=== PATIENT | female | born 1945 | race Two or more races ===

== ENCOUNTER → 2016-07-27 | Outpatient (CLI) | payer MEDICARE, OTHER ==
[~2016-07-27] MED LIST: ALPR-140 PO; ASP81EC PO; ATO40T PO; ATOR40TA52 PO; CIP500T PO; CLOP75TA28 PO; ESCI20TA51 PO; FENO145T20 PO; FURO20TA PO; GLIP-115 PO; HYDR-4072 PO; LEV25T PO; LOS25T PO; LOSA100T27 PO; MET50T PO; METO-291 PO; PANT40T PO; PIOG30TA37 PO; POTA10TA34 PO; ROPI0.5T18 PO; SACC250C PO; ZOLP5TAB5 PO
[2016-07-27 11:45] LABS: Basophils # (auto) 0 uL; Basophils % (auto) 0.5 % (0.0-2.0); Eosinophils # (auto) 0.1 uL; Eosinophils % (auto) 1.7 % (0.0-7.0); Hematocrit 36.7 % (36.0-46.0); Hemoglobin 12.1 g/dL (12.2-16.2); Lymphocytes # (auto) 2.1 uL; Lymphocytes % (auto) 30.2 % (10.0-50.0); Mean Corpuscular Hemoglobin 29.1 pg (28.0-32.0); Mean Corpuscular Hgb Conc. 32.8 g/dL (32.0-36.0); Mean Corpuscular Volume 88.6 fL (80.0-100.0); Mean Platelet Volume 8.6 fL (7.4-10.4); Monocytes # (auto) 0.5 uL; Monocytes % (auto) 6.6 % (0.0-12.0); Neutrophils # (auto) 4.3 uL; Platelet Count (auto) 248 10^3/uL (140-450); Red Cell Distribution Width 15.1 % (11.6-16.0)
[2016-07-27 12:11] LABS: BUN/Creatinine Ratio 18.8; Calcium 9.4 mg/dL (8.5-10.1); Potassium 3.9 mmol/L (3.5-5.1)
== END | disposition home or self-care (01) ==
LOC: LAB 11:23
PROVIDERS: ATTEND Thoracic Surgery (Cardiothoracic Vascular Surgery)
DX: I25.10 Atherosclerotic heart disease of native coronary artery without angina pectoris (principal)
CPT/HCPCS: 36415; 80048; 85025

== ENCOUNTER 2019-07-29 06:43 | Inpatient (IN) | payer MEDICARE, OTHER ==
[~2019-07-29] VITALS: Ht 149.9 cm; Wt 93.8 kg
[~2019-07-29 06:43] MED LIST changes: -ALPR-140 PO; +ALPR0.5T8 PO; +AMLO10TA13 PO; -ATO40T PO; -ATOR40TA52 PO; -CIP500T PO; -CLOP75TA28 PO; -FENO145T20 PO; -FURO20TA PO; +GABA300C10 PO; -GLIP-115 PO; +GLIP10TA9 PO; +HYDR-392 PO; -HYDR-4072 PO; -LEV25T PO; +LEVO75TA6 PO; -LOS25T PO; -LOSA100T27 PO; -MET50T PO; -METO-291 PO; +METO1TAB9 PO; +NITR0.4S29 SL; -PANT40T PO; -PIOG30TA37 PO; -POTA10TA34 PO; -ROPI0.5T18 PO; -SACC250C PO
[2019-07-29] MEDS ORDERED: IOHEXOL 350 MG/ML 100ML IJ ONE (07:19)
[2019-07-29] MEDS ORDERED: LIDOCAINE 2%HCL (LOCAL ANESTH.) INJ 20ML MDV ONE (07:19)
[2019-07-29] MEDS ORDERED: ANGIOMAX 250 MG VIAL IV ONE (08:05)
[2019-07-29] MEDS ORDERED: fentaNYL CITRATE 100 MCG/2 ML VL ONE ×2 (08:06→09:04)
[2019-07-29] MEDS ORDERED: SODIUM CHL 0.9% 50 ML ONE (08:06)
[2019-07-29] MEDS ORDERED: MIDAZOLAM HCL 1MG/1ML-2 ML VIAL ONE (08:06)
[2019-07-29] MEDS ORDERED: TICAGRELOR 90 MG TAB ONE (08:55)
[2019-07-29] MEDS ORDERED: ASPirin 81 mg TAB ONE (08:55)
[2019-07-29] MEDS ORDERED: NITROGLYCERIN 0.4MG/DOSE SPRAY 4.9GM ONE (08:56)
[2019-07-29] MEDS ORDERED: ALPRAZolam 0.5 MG TAB PO PRN (09:30)
[2019-07-29] MEDS ORDERED: NITROGLYCERIN 0.4 MG SL TAB SL SCH (09:30)
[2019-07-29] MEDS ORDERED: ONDANSETRON HCL 4 MG/2 ML VIAL IV PRN (09:30)
[2019-07-29] MEDS ORDERED: MORPHINE SULF INJ 2 MG/ML SYRINGE 1ML IV PRN (09:30)
[2019-07-29] MEDS ORDERED: NITROGLYCERIN 0.4 MG SL TAB SL PRN (09:30)
[2019-07-29] MEDS ORDERED: PATIENTS OWN MEDICATION (Glipizide 10 MG) PO SCH (10:00)
[2019-07-29] MEDS ORDERED: DEXTROSE (50%) 50ML SYRG IV PRN (10:00)
[2019-07-29] MEDS ORDERED: PATIENTS OWN MEDICATION (Metoprolol Succinate (Metoprolol Succinate Er) 100 MG) PO SCH (10:00)
[2019-07-29] MEDS ORDERED: PATIENTS OWN MEDICATION (Amlodipine Besylate 1 TAB) PO SCH (10:00)
[2019-07-29] MEDS ORDERED: PATIENTS OWN MEDICATION (Escitalopram Oxalate 20 MG) PO SCH (10:00)
[2019-07-29] MEDS ORDERED: ASPirin-EC 81 mg tab PO SCH (10:00)
[2019-07-29] MEDS ORDERED: PATIENTS OWN MEDICATION (Levothyroxine Sodium 1 TAB) PO SCH (10:00)
[2019-07-29 11:00] VITALS: BP 121/59
[2019-07-29] MEDS ORDERED: CLOPIDOGREL 300 MG TAB PO ONE ×2 (11:00→21:00)
[2019-07-29] MEDS: InsuLIN REG 1unit/0.01ml Soln (100units/ml) SC SCH ×3 (11:30→21:32)
[2019-07-29] MEDS: glipiZIDE 5 MG TAB PO SCH (11:33)
[2019-07-29] MEDS: ACCU-CHEK COMFORT CURVE STRIP VI SCH ×3 (11:34→21:32)
[2019-07-29] MEDS: GABAPENTIN 300 MG CAP PO SCH (13:00)
[2019-07-29] MEDS: METOPROLOL SUCCINATE XL 50 MG TAB PO SCH (13:01)
[2019-07-29] MEDS: amLODIPine BESYLATE 5 MG TAB PO SCH (13:01)
[2019-07-29] MEDS ORDERED: HYDROcodone-ACET 7.5/325MG TAB PO PRN (14:00)
[2019-07-29] MEDS ORDERED: ASP81EC PO (15:23)
[2019-07-29] MEDS ORDERED: LISI-646 PO (15:23)
[2019-07-29] MEDS ORDERED: CLOP75TA28 PO (15:23)
[2019-07-29] MEDS ORDERED: METO1TAB9 PO (15:23)
[2019-07-29 16:23] VITALS: BP 127/73
[2019-07-29 22:00] VITALS: BP 126/56
[2019-07-29] MEDS ORDERED: ZOLPIDEM TARTRATE 5 MG TAB PO SCH (22:00)
[2019-07-29] MEDS ORDERED: ATORVASTATIN 20 MG TAB PO SCH (22:00)
[2019-07-30 05:00] VITALS: BP 132/53
[2019-07-30 05:27] LABS: Basophils # (auto) 0.1 10 ^3/uL (0-0.2); Basophils % (auto) 0.5 % (0.0-2.0); Eosinophils # (auto) 0.1 10 ^3/uL (0-0.8); Eosinophils % (auto) 0.7 % (0.0-7.0); Hematocrit 41.2 % (36.0-46.0); Hemoglobin 13.9 g/dL (12.2-16.2); Lymphocytes # (auto) 2.6 10 ^3/uL (0.4-5.4); Lymphocytes % (auto) 24.9 % (10.0-50.0); Mean Corpuscular Hemoglobin 29.5 pg (28.0-32.0); Mean Corpuscular Hgb Conc. 33.6 g/dL (32.0-36.0); Mean Corpuscular Volume 87.7 fL (80.0-100.0); Monocytes % (auto) 9.2 % (0.0-12.0); Neutrophils # (auto) 6.8 10 ^3/uL (1.6-8.6); Neutrophils % (auto) 64.7 % (37.0-80.0); Platelet Count (auto) 195 10^3/uL (140-450); Red Cell Distribution Width 14.2 % (11.8-14.3); White Blood Cell 10.5 10^3/uL (4.4-10.8)
[2019-07-30 05:44] LABS: Calcium 8.6 mg/dL (8.5-10.1); Potassium 3.4 mmol/L (3.5-5.1)
[2019-07-30 05:47] LABS: BUN/Creatinine Ratio 11.6
[2019-07-30 06:03] LABS: Cholesterol 231 mg/dL (< 200)
[2019-07-30 06:06] LABS: HDL Cholesterol 41 mg/dL (40-59); LDL Cholesterol 164 mg/dL (< 100); Triglycerides 145 mg/dL (< 150)
[2019-07-30] MEDS: InsuLIN REG 1unit/0.01ml Soln (100units/ml) SC SCH ×2 (06:20→12:18)
[2019-07-30] MEDS: ACCU-CHEK COMFORT CURVE STRIP VI SCH ×2 (06:21→11:58)
[2019-07-30] MEDS ORDERED: LEVOTHYROXINE SODIUM 25 MCG TAB PO SCH (07:00)
[2019-07-30] MEDS ORDERED: LORazepam 0.5 MG TAB PO ONE (07:30)
[2019-07-30 09:00] VITALS: BP 131/66
[2019-07-30] MEDS: METOPROLOL SUCCINATE XL 50 MG TAB PO SCH (09:48)
[2019-07-30] MEDS: glipiZIDE 5 MG TAB PO SCH (09:48)
[2019-07-30] MEDS: GABAPENTIN 300 MG CAP PO SCH (09:49)
[2019-07-30] MEDS: amLODIPine BESYLATE 5 MG TAB PO SCH (09:49)
[2019-07-30] MEDS ORDERED: ASPirin-EC 81 mg tab PO SCH (10:00)
[2019-07-30] MEDS ORDERED: CITALOPRAM HYDROBR 20 MG TAB PO SCH (10:00)
[2019-07-30] MEDS ORDERED: CLOPIDOGREL BISULFATE 75 MG TAB PO SCH (10:00)
[2019-07-30] MEDS ORDERED: RANO500T2 PO (11:50)
[2019-07-30] MEDS ORDERED: ATO40T PO (11:50)
[2019-07-30 13:00] VITALS: BP 129/44
[2019-07-30 13:13] VITALS: BP 129/44
== END 2019-07-30 14:17 | disposition home or self-care (01) | DRG 247 ==
LOC: CATH 06:43 → TELE-WESTW 10:40
PROVIDERS: ADMIT Internal Medicine; ATTEND Internal Medicine
PROC: 027034Z Dilation of Coronary Artery, One Artery with Drug-eluting Intraluminal Device, Percutaneous Approach (ICD-10-PCS; principal; 2019-07-29)
PROC: 4A023N7 Measurement of Cardiac Sampling and Pressure, Left Heart, Percutaneous Approach (ICD-10-PCS; 2019-07-29)
PROC: B2111ZZ Fluoroscopy of Multiple Coronary Arteries using Low Osmolar Contrast (ICD-10-PCS; 2019-07-29)
PROC: B2151ZZ Fluoroscopy of Left Heart using Low Osmolar Contrast (ICD-10-PCS; 2019-07-29)
PROC: B2121ZZ Fluoroscopy of Single Coronary Artery Bypass Graft using Low Osmolar Contrast (ICD-10-PCS; 2019-07-29)
PROC: B2181ZZ Fluoroscopy of Left Internal Mammary Bypass Graft using Low Osmolar Contrast (ICD-10-PCS; 2019-07-29)
PROC: B41F1ZZ Fluoroscopy of Right Lower Extremity Arteries using Low Osmolar Contrast (ICD-10-PCS; 2019-07-29)
DX: I25.110 Atherosclerotic heart disease of native coronary artery with unstable angina pectoris (principal); I70.209 Unspecified atherosclerosis of native arteries of extremities, unspecified extremity; E11.51 Type 2 diabetes mellitus with diabetic peripheral angiopathy without gangrene; E03.9 Hypothyroidism, unspecified; E78.00 Pure hypercholesterolemia, unspecified; F41.9 Anxiety disorder, unspecified; I11.9 Hypertensive heart disease without heart failure; I25.82 Chronic total occlusion of coronary artery; Z82.49 Family history of ischemic heart disease and other diseases of the circulatory system; Z83.3 Family history of diabetes mellitus; Z95.1 Presence of aortocoronary bypass graft
CPT/HCPCS: 36415; 75710; 80048; 80061; 82962; 83036; 85025; 92928; 93459; 99152; 99153; C1874; C1887; G0378; J1815; J2250

== ENCOUNTER 2019-08-29 07:17 | Day surgery (SDC) | payer MEDICARE, OTHER ==
[~2019-08-29] VITALS: Ht 149.9 cm; Wt 71.7 kg
[~2019-08-29 07:17] MED LIST changes: -AMLO10TA13 PO; +AMLO5TAB15 PO; +ATO40T PO; +CILO100T PO; +CLOP75TA28 PO; -GLIP10TA9 PO; -HYDR-392 PO; +HYDR-4072 PO; +LEVO25TA6 PO; -LEVO75TA6 PO; +METO-158 PO; -METO1TAB9 PO; +PIO30T PO; +POM SC; +TRIATAB3 PO
[2019-08-29] MEDS ORDERED: IODIXANOL 320MG/ML 100ML BTL IV ONE ×2 (07:55→08:14)
[2019-08-29] MEDS ORDERED: LIDOCAINE 2%HCL (LOCAL ANESTH.) INJ 20ML MDV ONE (07:55)
[2019-08-29] MEDS ORDERED: LIDOCAINE HCL 100 MG/5ML (2%) SYRG INJ IV ONE (07:55)
[2019-08-29] MEDS ORDERED: ANGIOMAX 250 MG VIAL IV ONE (08:09)
[2019-08-29] MEDS ORDERED: fentaNYL CITRATE 100 MCG/2 ML VL ONE (08:09)
[2019-08-29] MEDS ORDERED: IOHEXOL 350 MG/ML 100ML IJ ONE (08:10)
[2019-08-29] MEDS ORDERED: MIDAZOLAM HCL 1MG/1ML-2 ML VIAL ONE (08:10)
[2019-08-29] MEDS ORDERED: VERAPAMIL 2.5MG/ML INJ 2ML VIAL IV ONE (08:10)
[2019-08-29] MEDS ORDERED: SODIUM CHL 0.9% 0 ML ONE (08:10)
[2019-08-29] MEDS ORDERED: NITROGLYCERIN 50MG/250ML 250 ML IV ONE (08:23)
== END 2019-08-29 11:15 | disposition home or self-care (01) ==
LOC: CATH 07:17
PROVIDERS: ATTEND Internal Medicine
DX: I73.9 Peripheral vascular disease, unspecified (principal); I10 Essential (primary) hypertension; E78.00 Pure hypercholesterolemia, unspecified; F32.9 Major depressive disorder, single episode, unspecified; F41.9 Anxiety disorder, unspecified; R07.9 Chest pain, unspecified; Z87.891 Personal history of nicotine dependence; Z90.710 Acquired absence of both cervix and uterus; Z95.1 Presence of aortocoronary bypass graft; Z98.890 Other specified postprocedural states; Z79.01 Long term (current) use of anticoagulants; Z79.82 Long term (current) use of aspirin; Z79.899 Other long term (current) drug therapy; Z11.59 Encounter for screening for other viral diseases
CPT/HCPCS: 36245; 75710; C1760; C1769; C1887; C1894; J1644; J2250; J3010; J7030; Q9967; U0003; 99152

== ENCOUNTER 2020-01-22 11:40 | Inpatient (IN) | payer MEDICARE, OTHER ==
[~2020-01-22] VITALS: Ht 149.9 cm; Wt 75.0 kg
[~2020-01-22 11:40] MED LIST changes: -ASP81EC PO; +ASPI-394 PO
[2020-01-22] MEDS ORDERED: SODIUM CHLORIDE 0.9% 1,000 ML IV ONE ×2 (12:15→22:15)
[2020-01-22 13:20] LABS: Albumin 3.4 g/dL (3.4-5.0); Calcium 8.9 mg/dL (8.5-10.1); Potassium 4.2 mmol/L (3.5-5.1)
[2020-01-22 13:25] LABS: INR 1.04 (0.9-1.15); Partial Thromboplastin Time 25.6 sec (23.0-31.2)
[2020-01-22 13:27] LABS: BUN/Creatinine Ratio 11.2; Total Protein 7.6 g/dL (6.4-8.2)
[2020-01-22 14:02] LABS: Hemoglobin 12.9 g/dL (12.2-16.2); Mean Corpuscular Hemoglobin 29.5 pg (28.0-32.0); Mean Corpuscular Hgb Conc. 33.1 g/dL (32.0-36.0); Mean Corpuscular Volume 89.2 fL (80.0-100.0); Platelet Count (auto) 223 10^3/uL (140-450); Red Blood Cells 4.38 10^6/uL (4.0-5.20); Red Cell Distribution Width 14.5 % (11.8-14.3); White Blood Cell 13.8 10^3/uL (4.4-10.8)
[2020-01-22 14:36] LABS: Band Neutrophils % (manual) 0; Basophils % (manual) 0 (0.0-2.0); Blast Cells 0; Eosinophils % (manual) 0 (0-7); Metamyelocytes % 0; Myelocytes % 0; Promyelocytes % 0; Reactive Lymphocytes 0
[2020-01-22 15:21] LABS: Lymphocytes % (manual) 17 (10.0-50.0); Monocytes % (manual) 6 (0-12)
[2020-01-22] MEDS ORDERED: ENOXAPARIN SOD 80 MG/0.8ML SYRINGE SC ONE (17:15)
[2020-01-22] MEDS ORDERED: cefTRIAXone 1GM/50ML D5W 50 ML IV ONE (18:45)
[2020-01-22] MEDS ORDERED: AZITHROMYCIN 500MG/ 250ML 250 ML IV ONE (18:45)
[2020-01-22] MEDS ORDERED: ACETAMINOPHEN 325 MG TAB PO ONE (21:30)
[2020-01-22 22:26] LABS: Urine Bacteria MOD /hpf (None Seen); Urine Blood Negative /uL (Negative); Urine Mucus FEW (None Seen); Urine Specific Gravity 1.011 (1.001-1.035); Urine WBC 530 /hpf (0 - 5); Urine WBC Clumps PRESENT /hpf (None Seen)
[2020-01-22] MEDS ORDERED: MORPHINE SULF INJ 2 MG/ML SYRINGE 1ML IV PRN (22:30)
[2020-01-22] MEDS ORDERED: SODIUM CHLORIDE 0.9% 1,000 ML IV SCH (22:30)
[2020-01-22] MEDS ORDERED: DOCUSATE SOD 100 MG CAP PO PRN (22:30)
[2020-01-22] MEDS ORDERED: NITROGLYCERIN 0.4 MG SL TAB SL PRN (22:30)
[2020-01-22] MEDS ORDERED: DEXTROSE (50%) 50ML SYRG IV PRN (22:30)
[2020-01-22] MEDS ORDERED: ONDANSETRON HCL 4 MG/2 ML VIAL IV PRN (22:30)
[2020-01-22] MEDS ORDERED: ACETAMINOPHEN 325 MG TAB PO PRN (22:30)
[2020-01-23] VITALS (8 sets, daily range): BP systolic 96–125; BP diastolic 35–53
--- NOTE | 2020-01-23 00:11 | NUR ---
OPENING NOTE RECEIVED PATIENT FROM ER. NO REPORT AGAIN RECEIVED FROM ER. PATIENT'S BP UNSTABLE PRIOR TO ARRIVAL. ASSUMING ROLE OF CARE OF PATIENT AT THIS TIME. PATIENT SHOWING FATIGUE BUT NO OTHER SIGN OF DISTRESS, AND PATIENT DENIES ANY SHORTNESS OF BREATH OR PAIN. NO DIET ORDER AT THIS TIME. WILL OBTAIN FROM MD. EDUCATED PATIENT ON PLAN OF CARE FOR THE NIGHT AND PATIENT VERBALIZED UNDERSTANDING. BED LOWERED, CALL LIGHT WITHIN REACH, WILL ROUND EVERY HOUR AND NEEDED.
--- NOTE | 2020-01-23 01:05 | NUR ---
ER CALLED CARDIO CONSULT WITH DR. GONSALEZ.
--- NOTE | 2020-01-23 06:15 | NUR ---
PATIENT'S BS 57. PATIENT ABLE TO SWALLOW, PATIENT GIVEN 2 ORANGE JUICES AND WILL RECHECK BS IN AN HOUR. HOSPITALIST PAGED AT THIS TIME. NO NEW ORDERS RECEIVED.
[2020-01-23] MEDS: LEVOTHYROXINE SODIUM 25 MCG TAB PO SCH (06:19)
[2020-01-23] MEDS: ACCU-CHEK COMFORT CURVE STRIP VI SCH ×4 (06:19→22:04)
[2020-01-23] MEDS: PIPERACILLIN-TAZOB 3.375GM 100 ML IV SCH ×3 (06:19→22:03)
[2020-01-23] MEDS: InsuLIN REG 1unit/0.01ml Soln (100units/ml) SC SCH ×4 (06:20→22:00)
--- NOTE | 2020-01-23 06:55 | NUR ---
BS RECHECKED AT 137.
--- NOTE | 2020-01-23 06:55 | NUR ---
IV ATTEMPT PATIENT STATED THAT THEY DO NOT LIKE THE POSITION OF THEIR IV. IV FLUSHES WELL AND IS INTACT. ATTEMPTED IV BUT UNSUCCESSFUL. INFORMED PATIENT AND WILL ENDORSE TO ANGEL HINOJOSA.
[2020-01-23 07:29] LABS: Basophils # (auto) 0.1 10 ^3/uL (0-0.2); Basophils % (auto) 0.4 % (0.0-2.0); Eosinophils # (auto) 0 10 ^3/uL (0-0.8); Hematocrit 33.1 % (36.0-46.0); Hemoglobin 11.1 g/dL (12.2-16.2); Lymphocytes # (auto) 1.6 10 ^3/uL (0.4-5.4); Mean Corpuscular Hemoglobin 29.7 pg (28.0-32.0); Mean Corpuscular Hgb Conc. 33.6 g/dL (32.0-36.0); Mean Corpuscular Volume 88.3 fL (80.0-100.0); Monocytes # (auto) 2.3 10 ^3/uL (0-1.3); Monocytes % (auto) 15.3 % (0.0-12.0); Neutrophils # (auto) 10.8 10 ^3/uL (1.6-8.6); Neutrophils % (auto) 73.3 % (37.0-80.0); Platelet Count (auto) 166 10^3/uL (140-450); Red Blood Cells 3.75 10^6/uL (4.0-5.20); Red Cell Distribution Width 14.4 % (11.8-14.3); White Blood Cell 14.7 10^3/uL (4.4-10.8)
[2020-01-23 07:46] LABS: Potassium 3.6 mmol/L (3.5-5.1)
--- NOTE | 2020-01-23 07:46 | NUR ---
PAGE DR GONSALEZ, REGARDING THE US ORDER, PER RADIOLOGY THEY DO NOT DO RENAY, MESSAGE LEFT WITH ANN
[2020-01-23 07:50] LABS: Cholesterol 103 mg/dL (< 200)
[2020-01-23 07:53] LABS: HDL Cholesterol 44 mg/dL (40-59); LDL Cholesterol 58 mg/dL (< 100); Triglycerides 83 mg/dL (< 150)
--- NOTE | 2020-01-23 08:00 | NUR ---
ASSESSMENT NOTE PT IS ALERT ORIENTED X4, RESTING IN BED COMFORTABLY, ABLE TO SELF REPOSITION AND VERBALIS HER DEMANDS, PAIN 0/10, LARGE SOFT ABDOMEN NOTED, CONTINUE FEELING WEAK AND TIRED, NO DISTRESS NOTED, CALL LIGHT WITHIN REACH
[2020-01-23 08:02] LABS: Albumin 2.7 g/dL (3.4-5.0); BUN/Creatinine Ratio 14.8; Bilirubin, Total 0.8 mg/dL (0.2-1.0); Calcium 7.8 mg/dL (8.5-10.1); Total Protein 6.4 g/dL (6.4-8.2)
--- NOTE | 2020-01-23 08:30 | NUR ---
COOL MEASURES PT HAS A FEVER 102.6, ICE PACKS APPLIED, TOOK OFF SOME OF BED COVERS
[2020-01-23] MEDS: MULTIPLE VITAMIN TAB PO SCH (08:48)
[2020-01-23] MEDS: FAMOTIDINE 20 MG TAB PO SCH ×2 (08:48→22:03)
[2020-01-23] MEDS: ASPirin-EC 81 mg tab PO SCH (08:48)
[2020-01-23] MEDS: CLOPIDOGREL BISULFATE 75 MG TAB PO SCH (08:49)
[2020-01-23] MEDS: ASCORBIC ACID 500 MG TAB PO SCH ×2 (08:49→22:03)
--- NOTE | 2020-01-23 09:06 | NUR ---
PRODUCTION DESIGNER AT BED SIDE FOR ARTERIAL US
[2020-01-23] MEDS ORDERED: ENOXAPARIN SOD 30 MG/0.3 ML SYRINGE SC SCH (10:00)
[2020-01-23] MEDS ORDERED: AZITHROMYCIN 500MG/ 250ML 250 ML IV SCH (10:00)
--- NOTE | 2020-01-23 12:13 | NUR ---
PAGE DR SEGURA CALLED BACK, INFORM ME THAT SHE IS AWARE OF COVID NEGATIVE RESULTS AND HER LABS, MADE AWARE OF PATIENT'S FEVER WITH NEW ORDER OF NS 500 BOLUS
[2020-01-23] MEDS ORDERED: SODIUM CHLORIDE 0.9% 500 ML IV ONE (12:15)
[2020-01-23] MEDS ORDERED: POTASSIUM CHL 20 Meq TABLET PO ONE (12:15)
[2020-01-23] MEDS: SODIUM CHLORIDE 0.9% 1,000 ML IV SCH ×2 (12:15→22:30)
[2020-01-23] MEDS ORDERED: LACTULOSE 20Gm/30ML SOLN PO ONE (12:30)
--- NOTE | 2020-01-23 12:30 | NUR ---
IV insertion IV access obtained, via clean sterile technique by inserting 22 gauge catheter at after attempt(s). IV secured properly. No trauma to site. Patient tolerated procedure well.OLD IV DISCONTINUE SINCE ITS INFILTRATED
--- NOTE | 2020-01-23 12:30 | NUR ---
LUNCH PT IS SLEEPING, REFUSED TO EAT LUNCH STATED NO I AM NOT GOING TO EAT
--- NOTE | 2020-01-23 14:30 | NUR ---
PT CONTINUE SLEEPING, NO DISTRESS NOTED, WAITING FOR PT TO WAKE UP TO GIVE HER LACTULOSE AND POTASSIUM PO
--- NOTE | 2020-01-23 15:09 | NUR ---
PER CHARGE NURSE PT WILL BE TRANSFER TO [facility] [address], CALLED ICU FOR A NEW TELE BOX
--- NOTE | 2020-01-23 15:20 | NUR ---
REPORT GIVEN TO FREDO HINOJOSA
--- NOTE | 2020-01-23 15:28 | NUR ---
TELE # [id number] APPLIED ON PT
--- NOTE | 2020-01-23 15:53 | NUR ---
TRANSFER PT TO [facility] VIA WHEEL , WITH ALL HER BELONGING , PATIENT'S DAUGHTER OSIEL OVER THE PHONE MADE AWARE
--- NOTE | 2020-01-23 15:56 | NUR ---
DR SUNSHINE SILVA, MADE AWARE WITH ALL UPDATE, AND PT IS GOING TO [address] [facility] [place]
--- NOTE | 2020-01-23 16:30 | NUR ---
99.8 f TEMP, COOLING MEASURES INITIATED.
[2020-01-23] MEDS: ATORVASTATIN 20 MG TAB PO SCH (17:40)
--- NOTE | 2020-01-23 19:29 | NUR ---
Opening Shift Note Assumed care of patient, awake and alert. No S/S of distress/SOB or pain. Instructed on POC and to call for assist PRN, will continue to monitor for changes Q1hr and PRN.
[2020-01-23] MEDS: HYDROcodone-ACET 5/325MG TAB PO PRN (20:26)
[2020-01-24 05:20] VITALS: BP 113/50
[2020-01-24] MEDS: PIPERACILLIN-TAZOB 3.375GM 100 ML IV SCH ×3 (06:04→21:31)
[2020-01-24] MEDS: ACCU-CHEK COMFORT CURVE STRIP VI SCH ×4 (06:34→21:35)
[2020-01-24] MEDS: LEVOTHYROXINE SODIUM 25 MCG TAB PO SCH (06:34)
[2020-01-24] MEDS: InsuLIN REG 1unit/0.01ml Soln (100units/ml) SC SCH ×4 (06:38→21:35)
[2020-01-24] MEDS: MORPHINE SULFATE 4 MG/ML SYR/VIAL IV PRN (06:52)
--- NOTE | 2020-01-24 07:40 | NUR ---
PATIENT NOTED TO BE SLEEPING COMFORTABLY AT THIS TIME, EASILY AWAKENED AND WENT BACK TO SLEEP AFTER ASSESSMENT WAS DONE. NO C/O PAIN/ DISCOMFORT VOICED BY PATIENT AT THIS TIME. CALL LIGHT WITHIN PATIENT'S REACH, SIDERAILS UP X2 WITH BED BRAKES ON. WILL CONTINUE TO MONITOR PATIENT.
[2020-01-24 07:42] LABS: Basophils # (auto) 0 10 ^3/uL (0-0.2); Basophils % (auto) 0.3 % (0.0-2.0); Eosinophils # (auto) 0 10 ^3/uL (0-0.8); Eosinophils % (auto) 0.1 % (0.0-7.0); Hematocrit 34.1 % (36.0-46.0); Hemoglobin 11.5 g/dL (12.2-16.2); Lymphocytes # (auto) 2.7 10 ^3/uL (0.4-5.4); Mean Corpuscular Hemoglobin 29.9 pg (28.0-32.0); Mean Corpuscular Hgb Conc. 33.7 g/dL (32.0-36.0); Mean Corpuscular Volume 88.6 fL (80.0-100.0); Monocytes # (auto) 2.2 10 ^3/uL (0-1.3); Monocytes % (auto) 16.1 % (0.0-12.0); Neutrophils # (auto) 8.6 10 ^3/uL (1.6-8.6); Neutrophils % (auto) 63.5 % (37.0-80.0); Nucleated Red Blood Cells % 0.1 %; Platelet Count (auto) 159 10^3/uL (140-450); Red Blood Cells 3.85 10^6/uL (4.0-5.20); Red Cell Distribution Width 14.8 % (11.8-14.3); White Blood Cell 13.5 10^3/uL (4.4-10.8)
[2020-01-24 08:00] VITALS: BP 122/58
[2020-01-24 08:05] LABS: Calcium 8.1 mg/dL (8.5-10.1); Potassium 3.7 mmol/L (3.5-5.1)
[2020-01-24 08:47] VITALS: BP 122/58
[2020-01-24 08:56] LABS: BUN/Creatinine Ratio 9.6
[2020-01-24] MEDS: FAMOTIDINE 20 MG TAB PO SCH ×2 (10:35→21:31)
[2020-01-24] MEDS: ENOXAPARIN SOD 40 MG/0.4 ML SYRINGE SC SCH (10:36)
[2020-01-24] MEDS: LACTULOSE 20Gm/30ML SOLN PO SCH (10:36)
[2020-01-24] MEDS: ASPirin-EC 81 mg tab PO SCH (10:37)
[2020-01-24] MEDS: MULTIPLE VITAMIN TAB PO SCH (10:37)
[2020-01-24] MEDS: ASCORBIC ACID 500 MG TAB PO SCH ×2 (10:37→21:31)
[2020-01-24] MEDS: CLOPIDOGREL BISULFATE 75 MG TAB PO SCH (10:37)
[2020-01-24] MEDS: SODIUM CHLORIDE 0.9% 1,000 ML IV SCH ×2 (11:37→18:15)
[2020-01-24 11:56] VITALS: BP 112/55
--- NOTE | 2020-01-24 13:10 | NUR ---
PATIENT NOTED TO BE SLEEPING BUT COVERED WITH MULTIPLE LAYERS. PATIENT NOTED TO BE WET WITH PERSPIRATION AND PAYTIENT STATED THAT SHE FELT COLD. T- 99.0 WHEN CHECKED. WILL CONTINUE TO MONITOR PATIENT.
--- NOTE | 2020-01-24 15:40 | NUR ---
MD AT BEDSIDE DR. BELCHER WAS IN TO SEE PATIENT AND MD LEFT NEW ORDERS. PATIENT SLEEPING COMFORTABLY AT THIS TIME. WILL CONTINUE TO MONITOR PATIENT.
[2020-01-24 17:07] VITALS: BP 124/53
[2020-01-24] MEDS: ATORVASTATIN 20 MG TAB PO SCH (18:27)
[2020-01-24] MEDS: HYDROcodone-ACET 5/325MG TAB PO PRN (21:42)
[2020-01-24 22:00] VITALS: BP 109/48
[2020-01-25] MEDS: SODIUM CHLORIDE 0.9% 1,000 ML IV SCH ×2 (04:15→14:38)
[2020-01-25 05:00] VITALS: BP 121/52
[2020-01-25] MEDS: PIPERACILLIN-TAZOB 3.375GM 100 ML IV SCH ×3 (05:45→23:02)
[2020-01-25] MEDS: LEVOTHYROXINE SODIUM 25 MCG TAB PO SCH (05:45)
[2020-01-25] MEDS: InsuLIN REG 1unit/0.01ml Soln (100units/ml) SC SCH ×4 (05:48→22:00)
[2020-01-25] MEDS: ACCU-CHEK COMFORT CURVE STRIP VI SCH ×4 (05:48→22:00)
--- NOTE | 2020-01-25 07:20 | NUR ---
Opening Shift Note: Assumed care of patient, awake and alert. No S/S of distress/SOB or pain. Bed in lowest locked position, side rails up x 2, call light within reach. Patient instructed on POC and to call for assist PRN, will continue to monitor for changes Q1hr and PRN.
[2020-01-25 07:26] LABS: Basophils # (auto) 0 10 ^3/uL (0-0.2); Basophils % (auto) 0.2 % (0.0-2.0); Eosinophils # (auto) 0.1 10 ^3/uL (0-0.8); Eosinophils % (auto) 0.8 % (0.0-7.0); Hematocrit 35.2 % (36.0-46.0); Hemoglobin 11.7 g/dL (12.2-16.2); Lymphocytes # (auto) 1.7 10 ^3/uL (0.4-5.4); Lymphocytes % (auto) 16.8 % (10.0-50.0); Mean Corpuscular Hemoglobin 29.5 pg (28.0-32.0); Mean Corpuscular Hgb Conc. 33.3 g/dL (32.0-36.0); Mean Corpuscular Volume 88.8 fL (80.0-100.0); Monocytes # (auto) 1.1 10 ^3/uL (0-1.3); Monocytes % (auto) 11.5 % (0.0-12.0); Neutrophils # (auto) 6.9 10 ^3/uL (1.6-8.6); Neutrophils % (auto) 70.7 % (37.0-80.0); Nucleated Red Blood Cells % 0.1 %; Platelet Count (auto) 176 10^3/uL (140-450); Red Blood Cells 3.97 10^6/uL (4.0-5.20); Red Cell Distribution Width 14.1 % (11.8-14.3); White Blood Cell 9.8 10^3/uL (4.4-10.8)
[2020-01-25 07:43] LABS: Potassium 3.4 mmol/L (3.5-5.1)
[2020-01-25 07:50] LABS: BUN/Creatinine Ratio 10.9; Calcium 8.2 mg/dL (8.5-10.1)
[2020-01-25 08:32] VITALS: BP 115/54
[2020-01-25] MEDS: CLOPIDOGREL BISULFATE 75 MG TAB PO SCH (09:38)
[2020-01-25] MEDS: MULTIPLE VITAMIN TAB PO SCH (09:38)
[2020-01-25] MEDS: LACTULOSE 20Gm/30ML SOLN PO SCH (09:38)
[2020-01-25] MEDS: ASPirin-EC 81 mg tab PO SCH (09:38)
[2020-01-25] MEDS: ENOXAPARIN SOD 40 MG/0.4 ML SYRINGE SC SCH (09:38)
[2020-01-25] MEDS: FAMOTIDINE 20 MG TAB PO SCH ×2 (09:38→23:03)
[2020-01-25] MEDS: ASCORBIC ACID 500 MG TAB PO SCH ×2 (09:38→23:03)
--- NOTE | 2020-01-25 09:45 | NUR ---
Patient refused 1000 Lactulose. Will notify
--- NOTE | 2020-01-25 11:57 | NUR ---
Nutrition Assessment Est energy needs 3787-0499 kcal (30-35 kcal/kg IBW 44kg) Est protein needs 44-53g (1-1.2g/kg IBW 44kg) Will reassess prn. Addendum: 01/25/20 at [address] Amended: Links added.
[2020-01-25 13:02] VITALS: BP 124/58
--- NOTE | 2020-01-25 13:10 | NUR ---
DR. MONTES: DR. BELCHER AT BEDSIDE. DISCUSSED POC WITH PATIENT PATIENT VERBALLY AGREED.
[2020-01-25] MEDS ORDERED: POTASSIUM EFFERVESENT TAB 25 MEQ PO ONE (13:15)
--- NOTE | 2020-01-25 14:56 | NUR ---
PATIENT STATES PAIN IN BACK 11/16. PATIENT STATES "I DON'T WANT ANYTHING FOR IT RIGHT NOW." WILL CONTINUE TO MONITOR.
--- NOTE | 2020-01-25 15:42 | NUR ---
PT REPORTS THAT SHE WALKS FINE AND DOES NOT NEED P.T. INTERVENTION.
[2020-01-25] MEDS: MORPHINE SULFATE 4 MG/ML SYR/VIAL IV PRN ×2 (16:50→22:59)
[2020-01-25 17:00] VITALS: BP 129/55
[2020-01-25] MEDS: ATORVASTATIN 20 MG TAB PO SCH (17:27)
--- NOTE | 2020-01-25 18:47 | NUR ---
CLOSING NOTE: PATIENT RESTING IN BED. NO S/S OF DISTRESS. CARE ENDORSED.
--- NOTE | 2020-01-25 19:00 | NUR ---
Opening Shift Note Assumed care of patient, awake and alert. No S/S of distress/SOB or pain. Instructed on POC and to callfor assist PRN, will continue to monitor for changes Q1hr and PRN.
[2020-01-25 21:59] VITALS: BP 121/67
[2020-01-26] MEDS: SODIUM CHLORIDE 0.9% 1,000 ML IV SCH (00:15)
[2020-01-26] MEDS: ACCU-CHEK COMFORT CURVE STRIP VI SCH ×2 (05:31→11:30)
[2020-01-26] MEDS: LEVOTHYROXINE SODIUM 25 MCG TAB PO SCH (05:31)
[2020-01-26] MEDS: PIPERACILLIN-TAZOB 3.375GM 100 ML IV SCH (05:31)
[2020-01-26] MEDS: InsuLIN REG 1unit/0.01ml Soln (100units/ml) SC SCH ×2 (05:31→12:10)
[2020-01-26 05:44] VITALS: BP 123/58
--- NOTE | 2020-01-26 07:00 | NUR ---
IV start Attempt Attempted two times to start new IV. Previous right wrist IV infiltrated, and is removed with pressure dressing placed. Skin is intact and slightly tender, no swelling or redness. Total two attempts, with IV on left hand and right forearm. Pressure dressing placed and communicated with oncoming nurse regarding IV and antibiotic.
--- NOTE | 2020-01-26 07:30 | NUR ---
CLOSING NOTE: PATIENT RESTING IN BED. NO S/S OF DISTRESS. CARE ENDORSED.
--- NOTE | 2020-01-26 07:50 | NUR ---
Opening Shift Note Assumed care of patient. Pt is awake and alert, oriented X 4. No S/S of respiratory distress noted. Bed in lowest locked position, side rails up X 2, call light is within reach. Instructed on POC and to call for assistance as needed. All questions and concerns addressed, patient verbalized understanding. Will continue to monitor for changes Q1hr and PRN.
[2020-01-26 08:01] LABS: Basophils # (auto) 0 10 ^3/uL (0-0.2); Basophils % (auto) 0.4 % (0.0-2.0); Eosinophils # (auto) 0.1 10 ^3/uL (0-0.8); Eosinophils % (auto) 1.4 % (0.0-7.0); Hematocrit 33.7 % (36.0-46.0); Hemoglobin 11.5 g/dL (12.2-16.2); Lymphocytes # (auto) 2.2 10 ^3/uL (0.4-5.4); Lymphocytes % (auto) 28.8 % (10.0-50.0); Mean Corpuscular Volume 88.3 fL (80.0-100.0); Monocytes # (auto) 0.9 10 ^3/uL (0-1.3); Monocytes % (auto) 11.1 % (0.0-12.0); Neutrophils # (auto) 4.5 10 ^3/uL (1.6-8.6); Neutrophils % (auto) 58.3 % (37.0-80.0); Nucleated Red Blood Cells % 0.1 %; Platelet Count (auto) 191 10^3/uL (140-450); Red Blood Cells 3.82 10^6/uL (4.0-5.20); Red Cell Distribution Width 14.3 % (11.8-14.3); White Blood Cell 7.7 10^3/uL (4.4-10.8)
[2020-01-26 08:18] LABS: Anion Gap 6 (5-15); Blood Urea Nitrogen 4 mg/dL (7-18); Calcium 8.6 mg/dL (8.5-10.1); Carbon Dioxide 26 mmol/L (21-32); Chloride 107 mmol/L (98-107); Glucose 113 mg/dL (74-106); Potassium 3.6 mmol/L (3.5-5.1); Sodium 139 mmol/L (136-145)
[2020-01-26 08:26] LABS: BUN/Creatinine Ratio 5.6; GFR African American 102 mL/min; GFR Non-African American 85 mL/min
[2020-01-26 08:34] VITALS: BP 131/55
[2020-01-26] MEDS: FAMOTIDINE 20 MG TAB PO SCH (09:59)
[2020-01-26] MEDS: ASCORBIC ACID 500 MG TAB PO SCH (09:59)
[2020-01-26] MEDS: MULTIPLE VITAMIN TAB PO SCH (09:59)
[2020-01-26] MEDS: ASPirin-EC 81 mg tab PO SCH (09:59)
[2020-01-26] MEDS: ENOXAPARIN SOD 40 MG/0.4 ML SYRINGE SC SCH (10:00)
[2020-01-26] MEDS: CLOPIDOGREL BISULFATE 75 MG TAB PO SCH (10:00)
[2020-01-26] MEDS: LACTULOSE 20Gm/30ML SOLN PO SCH (10:00)
[2020-01-26] MEDS ORDERED: ONDA-144 PO (11:27)
[2020-01-26] MEDS ORDERED: CIPR-173 PO (11:27)
[2020-01-26] MEDS ORDERED: CIPROFLOXACIN HCL 500 MG TAB PO ONE (11:30)
[2020-01-26 12:54] VITALS: BP 140/66
[2020-01-26 16:47] VITALS: BP 145/60
--- NOTE | 2020-01-26 17:20 | NUR ---
Discharge instructions given as ordered. Encourage to follow up with PMD as instructed. All questions and concerns addressed. Patient verbalized understanding. Medication reconciliation form completed and copy given to patient. IV removed with catheter intact, pressure dressing applied. Telemetry unit returned to ICU. Patient ambulated with all personal belongings, accompanied by staff. No distress noted at time of departure.
== END 2020-01-26 17:20 | disposition home or self-care (01) | DRG 871 ==
LOC: ER 11:40 → TELE 11:41 → TELE-EAST 23:42 → TELE-WESTW 01-23 15:50
PROVIDERS: ADMIT Nurse Practitioner Family; ATTEND Internal Medicine
DX: A41.51 Sepsis due to Escherichia coli [E. coli] (principal); N17.0 Acute kidney failure with tubular necrosis; I21.A1 Myocardial infarction type 2; N39.0 Urinary tract infection, site not specified; E44.0 Moderate protein-calorie malnutrition; E03.9 Hypothyroidism, unspecified; E78.5 Hyperlipidemia, unspecified; I25.10 Atherosclerotic heart disease of native coronary artery without angina pectoris; F17.210 Nicotine dependence, cigarettes, uncomplicated; R53.1 Weakness; D63.8 Anemia in other chronic diseases classified elsewhere; E11.22 Type 2 diabetes mellitus with diabetic chronic kidney disease; E11.51 Type 2 diabetes mellitus with diabetic peripheral angiopathy without gangrene; F32.9 Major depressive disorder, single episode, unspecified; I12.9 Hypertensive chronic kidney disease with stage 1 through stage 4 chronic kidney disease, or unspecified chronic kidney disease; K44.9 Diaphragmatic hernia without obstruction or gangrene; N18.9 Chronic kidney disease, unspecified; I95.9 Hypotension, unspecified; Z20.828 Contact with and (suspected) exposure to other viral communicable diseases; Z82.49 Family history of ischemic heart disease and other diseases of the circulatory system; Z79.4 Long term (current) use of insulin; Z90.49 Acquired absence of other specified parts of digestive tract; Z90.710 Acquired absence of both cervix and uterus; Z95.1 Presence of aortocoronary bypass graft; Z95.5 Presence of coronary angioplasty implant and graft; Z79.899 Other long term (current) drug therapy; Z79.82 Long term (current) use of aspirin; Z95.818 Presence of other cardiac implants and grafts; Z80.9 Family history of malignant neoplasm, unspecified; Z82.62 Family history of osteoporosis; Z68.32 Body mass index [BMI] 32.0-32.9, adult
CPT/HCPCS: 36415; 70450; 71045; 74176; 80048; 80053; 80061; 81001; 82962; 83036; 83605; 84439; 84443; 84484; 85007; 85025; 85027; 85610; 85730; 87040; 87077; 87086; 87186; 87426; 93005; 93306; 93923; G0378; J0696; J1815; J2543

== ENCOUNTER 2023-11-29 16:11 | Inpatient (IN) | payer MEDICARE, OTHER ==
[~2023-11-29] VITALS: Ht 149.9 cm; Wt 72.5 kg
[~2023-11-29 16:11] MED LIST changes: +AMLO1TAB22 PO; -AMLO5TAB15 PO; -ATO40T PO; +ATOR-507 PO; -CILO100T PO; +CILO100T3 PO; +CIPR-173 PO; +ESCI1TAB37 PO; -ESCI20TA51 PO; +GABA-1250 PO; -GABA300C10 PO; +ONDA-144 PO
[2023-11-29 16:38] VITALS: O2SAT 95
[2023-11-29 17:34] LABS: Basophils # (auto) 0 10 ^3/uL (0-0.2); Basophils % (auto) 0.5 % (0.0-2.0); Eosinophils # (auto) 0.1 10 ^3/uL (0-0.8); Eosinophils % (auto) 1.4 % (0.0-7.0); Hematocrit 39.8 % (36.0-46.0); Hemoglobin 13.2 g/dL (12.2-16.2); Lymphocytes # (auto) 2.8 10 ^3/uL (0.4-5.4); Lymphocytes % (auto) 28.1 % (10.0-50.0); Mean Corpuscular Hemoglobin 29.2 pg (28.0-32.0); Mean Corpuscular Hgb Conc. 33.2 g/dL (32.0-36.0); Monocytes # (auto) 1.5 10 ^3/uL (0-1.3); Monocytes % (auto) 14.9 % (0.0-12.0); Neutrophils # (auto) 5.6 10 ^3/uL (1.6-8.6); Neutrophils % (auto) 55.1 % (37.0-80.0); Nucleated Red Blood Cells % 0.2 %; Platelet Count (auto) 181 10^3/uL (140-450); Red Blood Cells 4.53 10^6/uL (4.0-5.20); Red Cell Distribution Width 15.2 % (11.8-14.3); White Blood Cell 10.1 10^3/uL (4.4-10.8)
[2023-11-29 17:52] LABS: Alanine Aminotransferase 20 U/L (7-40); Albumin 3.6 g/dL (3.2-4.8); Alkaline Phosphatase 180 U/L (46-116); Anion Gap 4 (5-15); Aspartate Aminotransferase 21 U/L (13-40); BUN/Creatinine Ratio 9.2 (10.0-20.0); Bilirubin, Total 0.5 mg/dL (0.2-1.0); Blood Urea Nitrogen 7 mg/dL (9-23); Carbon Dioxide 29 mmol/L (20-30); Chloride 108 mmol/L (98-107); Glucose 99 mg/dL (74-106); Magnesium 1.6 mg/dL (1.6-2.6); Potassium 3.6 mmol/L (3.5-5.1); Sodium 141 mmol/L (136-145)
[2023-11-29 17:53] LABS: Total Protein 5.8 g/dL (5.7-8.2)
[2023-11-29 18:22] LABS: Urine Bacteria FEW /hpf (None Seen); Urine Blood Negative /uL (Negative); Urine Clarity Turbid (Clear); Urine Color Light-Yellow (Yellow); Urine Protein, UAD Negative (Negative); Urine Specific Gravity 1.007 (1.001-1.035); Urine Urobilinogen 2 mg/dL (Negative); Urine WBC 56 /hpf (0 - 5); Urine pH 6.5 (5.0-9.0)
[2023-11-29] MEDS: cefTRIAXone 1GM/50ML D5W 50 ML IV ONE (19:19)
[2023-11-29 19:40] VITALS: PULSE 54; O2SAT 95
[2023-11-29] MEDS ORDERED: ONDANSETRON HCL 4 MG/2 ML VIAL IV PRN (21:15)
[2023-11-29] MEDS ORDERED: hydrALAZINE HCL 20 MG/ML VL IV PRN (21:15)
[2023-11-29] MEDS ORDERED: ACETAMINOPHEN 325 MG TAB PO PRN (21:15)
[2023-11-29] MEDS ORDERED: DOCUSATE SOD 100 MG CAP PO PRN (21:15)
[2023-11-29] MEDS ORDERED: DEXTROSE (50%) 50ML SYRG IV PRN (21:15)
[2023-11-29] MEDS ORDERED: NITROGLYCERIN 0.4 MG SL TAB SL PRN (22:15)
[2023-11-29] MEDS ORDERED: MORPHINE SULFATE INJ 2 MG/ml SYRG IV PRN (22:15)
[2023-11-29] MEDS: ATORVASTATIN 20 MG TAB PO SCH (22:30)
[2023-11-29] MEDS: SODIUM CHLOR 0.9% PF (SALINE LOCK) 10ML VIAL/SYR IV SCH (22:31)
[2023-11-29] MEDS: ACCU-CHEK COMFORT CURVE STRIP VI SCH (22:31)
[2023-11-29] MEDS: InsuLIN REG 1unit/0.01ml Soln (100units/ml) SC SCH (22:31)
[2023-11-30] VITALS (10 sets, daily range): BP systolic 131–153; BP diastolic 47–90; PULSE 54–65; RESP 16–20; TEMP 97.8–98.6; O2SAT 93–99
[2023-11-30] MEDS: HYDROcodone-ACET 5/325MG TAB PO PRN (05:29)
[2023-11-30] MEDS: LEVOTHYROXINE SODIUM 25 MCG TAB PO SCH (05:56)
[2023-11-30 07:21] LABS: Basophils # (auto) 0 10 ^3/uL (0-0.2); Basophils % (auto) 0.4 % (0.0-2.0); Eosinophils # (auto) 0.1 10 ^3/uL (0-0.8); Eosinophils % (auto) 1.1 % (0.0-7.0); Hematocrit 40.3 % (36.0-46.0); Hemoglobin 13.6 g/dL (12.2-16.2); Lymphocytes # (auto) 3.4 10 ^3/uL (0.4-5.4); Lymphocytes % (auto) 28.9 % (10.0-50.0); Mean Corpuscular Hgb Conc. 33.8 g/dL (32.0-36.0); Mean Corpuscular Volume 88.7 fL (80.0-100.0); Neutrophils # (auto) 6.3 10 ^3/uL (1.6-8.6); Neutrophils % (auto) 52.6 % (37.0-80.0); Nucleated Red Blood Cells % 0.1 %; Platelet Count (auto) 159 10^3/uL (140-450); Red Blood Cells 4.54 10^6/uL (4.0-5.20); Red Cell Distribution Width 15.4 % (11.8-14.3); White Blood Cell 11.9 10^3/uL (4.4-10.8)
[2023-11-30 07:24] LABS: Alanine Aminotransferase 16 U/L (7-40); Albumin 3.6 g/dL (3.2-4.8); Alkaline Phosphatase 165 U/L (46-116); Anion Gap 6 (5-15); Aspartate Aminotransferase 19 U/L (13-40); Bilirubin, Total 0.5 mg/dL (0.2-1.0); Blood Urea Nitrogen 9 mg/dL (9-23); Calcium 9.1 mg/dL (8.7-10.4); Carbon Dioxide 28 mmol/L (20-30); Chloride 107 mmol/L (98-107); Glucose 74 mg/dL (74-106); Potassium 3.2 mmol/L (3.5-5.1); Sodium 141 mmol/L (136-145); Total Protein 6.1 g/dL (5.7-8.2)
[2023-11-30] MEDS: cefTRIAXone 1GM/50ML D5W 50 ML IV SCH (09:46)
[2023-11-30] MEDS: LIDOCAINE 5% TOPICAL PATCH TOP SCH (09:46)
[2023-11-30] MEDS: ASPirin 81 mg TAB PO SCH (09:46)
[2023-11-30] MEDS: POTASSIUM EFFERVESENT TAB 25 MEQ PO ONE (09:47)
[2023-11-30] MEDS ORDERED: ALPR0.254 PO (17:46)
[2023-11-30] MEDS ORDERED: DULO1CAP5 PO (17:46)
[2023-11-30] MEDS ORDERED: LEVO75TA6 PO (17:46)
[2023-11-30] MEDS ORDERED: METO1TAB9 PO (17:46)
[2023-11-30] MEDS ORDERED: ATOR80TA PO (17:46)
[2023-11-30] MEDS ORDERED: ISOS1TAB29 PO (17:46)
[2023-12-01] VITALS (8 sets, daily range): BP systolic 117–151; BP diastolic 49–65; PULSE 60–76; RESP 15–18; TEMP 98–98.9; O2SAT 98
[2023-12-01 09:37] LABS: Basophils # (auto) 0.1 10 ^3/uL (0-0.2); Basophils % (auto) 0.7 % (0.0-2.0); Eosinophils # (auto) 0.1 10 ^3/uL (0-0.8); Eosinophils % (auto) 1.4 % (0.0-7.0); Hematocrit 44.4 % (36.0-46.0); Hemoglobin 15.3 g/dL (12.2-16.2); Lymphocytes # (auto) 2.8 10 ^3/uL (0.4-5.4); Lymphocytes % (auto) 29.6 % (10.0-50.0); Mean Corpuscular Hemoglobin 30.3 pg (28.0-32.0); Mean Corpuscular Hgb Conc. 34.5 g/dL (32.0-36.0); Monocytes # (auto) 1.4 10 ^3/uL (0-1.3); Monocytes % (auto) 14.8 % (0.0-12.0); Neutrophils # (auto) 5.1 10 ^3/uL (1.6-8.6); Neutrophils % (auto) 53.5 % (37.0-80.0); Platelet Count (auto) 175 10^3/uL (140-450); Red Blood Cells 5.04 10^6/uL (4.0-5.20); Red Cell Distribution Width 15.6 % (11.8-14.3); White Blood Cell 9.6 10^3/uL (4.4-10.8)
[2023-12-01 10:44] LABS: Anion Gap 4 (5-15); Carbon Dioxide 30 mmol/L (20-30); Chloride 106 mmol/L (98-107); Potassium 3.8 mmol/L (3.5-5.1); Sodium 140 mmol/L (136-145)
[2023-12-01 10:45] LABS: Calcium 9.3 mg/dL (8.7-10.4)
[2023-12-01 10:50] LABS: BUN/Creatinine Ratio 12.1 (10.0-20.0); Blood Urea Nitrogen 8 mg/dL (9-23); Glucose 120 mg/dL (74-106)
[2023-12-02 01:00] VITALS: BP 139/46; PULSE 75; RESP 15; TEMP 98; O2SAT 96
[2023-12-02 05:00] VITALS: BP 99/52; PULSE 60; RESP 20; TEMP 98.3; O2SAT 97
[2023-12-02 08:00] VITALS: PULSE 64
[2023-12-02 08:56] VITALS: BP 139/60; PULSE 71; RESP 16; TEMP 98.6; O2SAT 94
[2023-12-02] MEDS ORDERED: CEPH250C PO (12:36)
[2023-12-02 13:00] VITALS: BP 144/65; PULSE 72; RESP 18; TEMP 98.2; O2SAT 96
[2023-12-02 13:25] VITALS: BP 144/65; PULSE 72; RESP 18; TEMP 98.4; O2SAT 96
== END 2023-12-02 14:00 | disposition home or self-care (01) | DRG 74 ==
LOC: EDSEX 16:11 → ER 16:11 → EDBD 16:11 → TELE-EAST 22:04 → TELE 22:04 → TELE-EAST 23:50
PROVIDERS: ADMIT Internal Medicine Hematology & Oncology; ATTEND Internal Medicine
DX: G90.8 Other disorders of autonomic nervous system (principal); N39.0 Urinary tract infection, site not specified; I25.10 Atherosclerotic heart disease of native coronary artery without angina pectoris; E03.9 Hypothyroidism, unspecified; G47.00 Insomnia, unspecified; F41.9 Anxiety disorder, unspecified; N20.0 Calculus of kidney; G89.29 Other chronic pain; I11.0 Hypertensive heart disease with heart failure; I50.9 Heart failure, unspecified; E78.5 Hyperlipidemia, unspecified; E11.9 Type 2 diabetes mellitus without complications; I65.21 Occlusion and stenosis of right carotid artery; E87.6 Hypokalemia; M47.816 Spondylosis without myelopathy or radiculopathy, lumbar region; M51.36 Other intervertebral disc degeneration, lumbar region; F17.210 Nicotine dependence, cigarettes, uncomplicated; Z90.710 Acquired absence of both cervix and uterus; Z95.1 Presence of aortocoronary bypass graft; Z82.49 Family history of ischemic heart disease and other diseases of the circulatory system; Z82.62 Family history of osteoporosis; Z79.4 Long term (current) use of insulin; Z90.49 Acquired absence of other specified parts of digestive tract; W18.39XA Other fall on same level, initial encounter; Y93.89 Activity, other specified; Y92.89 Other specified places as the place of occurrence of the external cause; Y99.8 Other external cause status
CPT/HCPCS: 36415; 70450; 71045; 71250; 72125; 74176; 80048; 80053; 81001; 82962; 83605; 83735; 83880; 84439; 84443; 84484; 85025; 87040; 87086; 93306; 93886; 96365; 97163; G0378; J1815